=== PATIENT | female | born 1990 | race Caucasian/White ===

== ENCOUNTER 2017-06-23 23:13 | Emergency (ER) | payer SELFPAY ==
[2017-06-23 23:18] VITALS: BP 146/99
[2017-06-24 01:00] LABS: Bacteria,Urine 4+ /HPF (Negative); Bilirubin,Urine NEG (Negative); Blood,Urine LG (Negative); Color,Urine Yellow (Yellow); Mucus,Urine 2+ /HPF
[2017-06-24 01:14] LABS: WBC,Urine > 182.0 /HPF (0.0-6.0)
[2017-06-24 01:16] LABS: HCG Qualitative,Urine Negative (Negative)
== END 2017-06-24 03:30 | disposition left against medical advice (07) ==
LOC: ED 23:13
DX: R10.2 Pelvic and perineal pain (principal); Z53.21 Procedure and treatment not carried out due to patient leaving prior to being seen by health care provider
CPT/HCPCS: 81001; 81025; 87591